=== PATIENT | female | born 1990 | race African-American/Black ===

== ENCOUNTER 2023-12-10 11:25 | Observation (INO) | payer OTHER ==
[2023-12-10 12:22] VITALS: BMI 34.3
[2023-12-10] MEDS ORDERED: ACETAMINOPHEN 325 MG TABLET (FP) ONE (12:49)
[2023-12-10] MEDS: ACETAMINOPHEN 325 MG TABLET (FP) PO ONE (12:51)
[2023-12-10 13:28] LABS: HEMATOCRIT 20.9 % (32.4-45.2); MCH 24.1 pg (25.7-33.7); MCHC 31.7 g/dl (32.0-36.0); MEAN CELL VOLUME 76.1 fl (80-96); MEAN PLT VOLUME 9.6 fl (7.5-11.1); PLATELET COUNT 227.3 10^3/uL (134-434); RBC 2.75 10^6/uL (3.60-5.2); RDW 18.6 % (11.6-15.6); WHITE BLOOD COUNT 4.4 10^3/uL (4.0-10.8)
[2023-12-10 13:31] LABS: HEMOGLOBIN 6.6 G/dL (10.7-15.3)
[2023-12-10 13:41] LABS: HCG,QUALITATIVE URINE Negative
[2023-12-10 13:44] LABS: ANISOCYTOSIS 1+; PLATELET ESTIMATE ADEQUATE
[2023-12-10 13:52] LABS: ALBUMIN 4.4 g/dl (3.4-5.0); BILIRUBIN,TOTAL 0.3 mg/dl (0.2-1); CALCIUM 9.4 mg/dl (8.5-10.1); CREATININE 0.7 mg/dl (0.6-1.3); POTASSIUM 4.1 mmol/L (3.5-5.1); TOT PROT 6.8 g/dl (6.4-8.2)
[2023-12-10] MEDS: FERROUS SO4 325 MG TABLET (FP) PO SCH (17:42)
[2023-12-10 23:05] LABS: HEMATOCRIT 23.6 % (32.4-45.2); HEMOGLOBIN 7.5 G/dL (10.7-15.3); MCH 24.8 pg (25.7-33.7); MCHC 31.8 g/dl (32.0-36.0); MEAN CELL VOLUME 78.3 fl (80-96); MEAN PLT VOLUME 9.3 fl (7.5-11.1); PLATELET COUNT 222.1 10^3/uL (134-434); RBC 3.02 10^6/uL (3.60-5.2); RDW 19.2 % (11.6-15.6); WHITE BLOOD COUNT 4.9 10^3/uL (4.0-10.8)
[2023-12-11 08:16] LABS: HEMATOCRIT 25.4 % (32.4-45.2); MCH 24.6 pg (25.7-33.7); MCHC 31.5 g/dl (32.0-36.0); MEAN CELL VOLUME 78.2 fl (80-96); MEAN PLT VOLUME 9.5 fl (7.5-11.1); PLATELET COUNT 230.6 10^3/uL (134-434); RBC 3.25 10^6/uL (3.60-5.2); RDW 18.6 % (11.6-15.6); WHITE BLOOD COUNT 5.6 10^3/uL (4.0-10.8)
[2023-12-11 09:03] VITALS: RESP 18
[2023-12-11 13:56] VITALS: BP 106/62; PULSE 85; TEMP 98.4
== END 2023-12-11 14:55 | disposition home or self-care (01) ==
LOC: FER 11:25 → FM/S 13:50
PROVIDERS: ADMIT Internal Medicine; ATTEND Internal Medicine
PROC: 30233N1 Transfusion of Nonautologous Red Blood Cells into Peripheral Vein, Percutaneous Approach (ICD-10-PCS; principal; 2023-12-10)
DX: D64.89 Other specified anemias (principal); Z88.0 Allergy status to penicillin
CPT/HCPCS: 36415; 36430; 76830-TC; 76856-TC; 80053; 81003; 81015; 82607; 82728; 82746; 83540; 83550; 84703; 85027; 85045; 86850; 86900; 86901; 86922; 99285-25; G0378; P9038; P9058